=== PATIENT | female | born 1965 | race Caucasian/White ===

== ENCOUNTER 2019-03-02 09:43 | Inpatient (IN) | payer OTHER ==
[2019-03-02] MEDS: ONDANSETRON 4 MG INJ IV ×2 (10:28→21:44)
[2019-03-02] MEDS: HYDROmorphONE 1 MG/ML SYG IV (10:28)
[2019-03-02] MEDS: VANCOMYCIN 1 GM (PMX) 250 ML IVPB (10:29)
[2019-03-02] MEDS: SODIUM CHLORIDE 0.9% 1L BAG IV* (10:29)
[2019-03-02] MEDS: ACETAMINOPHEN 325 MG TAB PO ×2 (10:29→21:39)
[2019-03-02 10:31] LABS: ABNORMAL IP MESSAGE 1; HEMATOCRIT 23.9 % (37.0-47.0); HEMOGLOBIN 7.2 g/dl (12.0-16.0); MEAN CORPUSCULAR HEMOGLOBIN 25.9 pg (29.0-33.0); MEAN CORPUSCULAR HGB CONC 30.1 g/dl (32.0-37.0); MEAN PLATELET VOLUME 11.7 fl (7.4-10.4); PLATELET COUNT 177 10^3/UL (140-415); RED BLOOD COUNT 2.78 10^6/ul (4.20-5.40); RED CELL DISTRIBUTION WIDTH 21.6 % (11.5-14.5)
[2019-03-02 10:31] LABS: WHITE BLOOD COUNT 1.4 10^3/ul (4.8-10.8)
[2019-03-02 10:32] LABS: ADD MAN DIFF? YES; POSITIVE DIFF @See below
[2019-03-02 10:47] LABS: ALANINE AMINOTRANSFERASE 23 IU/L (13-69); ALBUMIN 3.7 g/dl (3.3-4.9); ALBUMIN/GLOBULIN RATIO 1.02; ALKALINE PHOSPHATASE 327 IU/L (42-121); AMYLASE 46 U/L (11-123); ANION GAP 11 (5-13); ASPARTATE AMINO TRANSFERASE 73 IU/L (15-46); BILIRUBIN,INDIRECT 1.2 mg/dl (0-1.1); BILIRUBIN,TOTAL 1.2 mg/dl (0.2-1.3); BLOOD UREA NITROGEN 13 mg/dl (7-20); CALCIUM 8.8 mg/dl (8.4-10.2); CARBON DIOXIDE 26 mmol/L (21-31); CHLORIDE 101 mmol/L (97-110); CREATININE 0.77 mg/dl (0.44-1.00); Estimated GFR > 60 mL/min (>60); GLUCOSE 128 mg/dl (70-220); INR 1.07; LIPASE 43 U/L (23-300); POTASSIUM 4.2 mmol/L (3.5-5.1); PT RATIO 1.1; SODIUM 138 mmol/L (135-144); TOTAL PROTEIN 7.3 g/dl (6.1-8.1)
[2019-03-02 10:48] LABS: PARTIAL THROMBOPLASTIN TIME 23.9 Sec (23.0-35.0)
[2019-03-02 10:58] LABS: TROPONIN-I 0.014 ng/ml (0.000-0.120)
[2019-03-02] MEDS: LEVOFLOXACIN 750MG/D5W (PMX) 150 ML IVPB (11:28)
[2019-03-02] MEDS: SOD CHLORIDE 0.9% 100 ML (11:52)
[2019-03-02] MEDS: IOHEXOL 300MG/ML 150 ML BTL (11:52)
[2019-03-02 12:07] LABS: ADD UMIC YES; UR ASCORBIC ACID NEGATIVE (NEGATIVE); UR BACTERIA FEW /HPF (NONE SEEN); UR BILIRUBIN (Dip) NEGATIVE (NEGATIVE); UR BLOOD (Dip) 1+ mg/dL (NEGATIVE); UR CLARITY CLEAR (CLEAR); UR COLOR YELLOW (YELLOW); UR GLUCOSE (Dip) NEGATIVE (NEGATIVE); UR KETONES (Dip) NEGATIVE (NEGATIVE); UR LEUKOCYTE ESTERASE (Dip) NEGATIVE Leu/ul (NEGATIVE); UR NITRITE (Dip) NEGATIVE (NEGATIVE); UR RBC 0 /HPF (0-5); UR SPECIFIC GRAVITY (Dip) 1.006 (1.003-1.030); UR TOTAL PROTEIN (Dip) NEGATIVE (NEGATIVE); UR UROBILINOGEN (Dip) NEGATIVE (NEGATIVE); UR WBC 0 /HPF (0-5)
[2019-03-02 12:54] LABS: ANISOCYTOSIS 3+ (0-0); BAND NEUTROPHILS % (M) 5 % (0-4); EOSINOPHILS % (M) 2 % (0-7); GIANT THROMBO% (M) 8 % (0-0); HYPOCHROMASIA 1+ (0-0); LYMPHOCYTES #M 0.1 10^3/ul (0.8-2.9); LYMPHOCYTES % (M) 8 % (15-51); MICROCYTOSIS 1+ (0-0); MONOCYTE #M 0.2 10^3/ul (0.3-0.9); MONOCYTES % (M) 20 % (0-11); OVALOCYTES 1+ (0-0); PLASMAC%(M) 1 % (0); PLATELET ESTIMATE NORMAL; POIKILOCYTOSIS 2+ (0-0); POLYCHROMASIA 3+ (0-0); SEG NEUT #M 0.9 10^3/ul (1.6-7.5); SEGMENTED NEUTROPHILS (M) % 64 % (39-77); TEAR DROP CELLS 1+ (0-0)
[2019-03-02] MEDS: HYDROCODONE/APAP (5/325) TAB PO ×2 (13:56→23:02)
[2019-03-02] MEDS: morphine 2 MG INJ IV ×2 (13:56→21:51)
[2019-03-02] MEDS: SOD CHLORIDE 0.9% 1,000 ML IV (13:56)
[2019-03-02] MEDS ORDERED: MAGNESIUM HYDROXIDE 30ML CUP PO (14:00)
[2019-03-02] MEDS ORDERED: NACL 0.9% 3 ML SYG IV (14:00)
[2019-03-02] MEDS ORDERED: DOCUSATE SODIUM 100 MG CAP PO (14:00)
[2019-03-02] MEDS ORDERED: VANCOMYCIN IV PER PHARMACY XX (14:00)
[2019-03-02 14:20] LABS: LACTIC ACID 1.6 mmol/L (0.5-2.0)
[2019-03-02 18:09] LABS: LACTIC ACID 1.4 mmol/L (0.5-2.0)
[2019-03-02] MEDS ORDERED: [UNRECOGNIZED DRUG - OTHER] PO (21:00)
[2019-03-02] MEDS: MEROPENEM 1 GM/50ML(PMX) 50 ML IVPB (21:38)
[2019-03-02] MEDS: VANCOMYCIN 1 GM 250 ML IVPB (21:39)
[2019-03-03] MEDS: ONDANSETRON 4 MG INJ IV ×3 (05:11→20:36)
[2019-03-03] MEDS: morphine 2 MG INJ IV ×3 (05:11→20:39)
[2019-03-03] MEDS: SOD CHLORIDE 0.9% 1,000 ML IV (05:12)
[2019-03-03] MEDS: HYDROCODONE/APAP (5/325) TAB PO ×3 (06:24→21:53)
[2019-03-03 06:25] LABS: WHITE BLOOD COUNT 1.5 10^3/ul (4.8-10.8)
[2019-03-03 06:25] LABS: ABNORMAL IP MESSAGE 1; HEMATOCRIT 19.9 % (37.0-47.0); MEAN CORPUSCULAR HEMOGLOBIN 26.5 pg (29.0-33.0); MEAN CORPUSCULAR HGB CONC 30.2 g/dl (32.0-37.0); MEAN CORPUSCULAR VOLUME 88.1 fl (82.0-101.0); PLATELET COUNT 154 10^3/UL (140-415); RED BLOOD COUNT 2.26 10^6/ul (4.20-5.40); RED CELL DISTRIBUTION WIDTH 21.5 % (11.5-14.5)
[2019-03-03 06:30] LABS: POSITIVE DIFF @See below
[2019-03-03 06:31] LABS: PATH REVIEW? YES
[2019-03-03 06:32] LABS: ADD MAN DIFF? YES
[2019-03-03 06:49] LABS: ANION GAP 6 (5-13); BLOOD UREA NITROGEN 12 mg/dl (7-20); CALCIUM 8.4 mg/dl (8.4-10.2); CARBON DIOXIDE 27 mmol/L (21-31); CHLORIDE 108 mmol/L (97-110); CREATININE 0.72 mg/dl (0.44-1.00); Estimated GFR > 60 mL/min (>60); GLUCOSE 114 mg/dl (70-220); POTASSIUM 3.5 mmol/L (3.5-5.1); SODIUM 141 mmol/L (135-144)
[2019-03-03 07:54] LABS: ANISOCYTOSIS 1+ (0-0); BAND NEUTROPHILS #M 0.2 10^3/ul (0.0-0.6); BAND NEUTROPHILS % (M) 15 % (0-4); BURR CELLS 1+ (0-0); EOSINOPHILS % (M) 1 % (0-7); GIANT THROMBO% (M) 5 % (0-0); HYPOCHROMASIA 1+ (0-0); LYMPHOCYTES #M 0.2 10^3/ul (0.8-2.9); LYMPHOCYTES % (M) 14 % (15-51); MICROCYTOSIS 1+ (0-0); MONOCYTE #M 0.1 10^3/ul (0.3-0.9); MONOCYTES % (M) 7 % (0-11); OVALOCYTES 1+ (0-0); PLASMAC%(M) 1 % (0); PLATELET ESTIMATE NORMAL; POIKILOCYTOSIS 2+ (0-0); POLYCHROMASIA 1+ (0-0); SEG NEUT #M 0.9 10^3/ul (1.6-7.5); SEGMENTED NEUTROPHILS (M) % 62 % (39-77); SMUDGE%M 6 % (0-0); TEAR DROP CELLS 1+ (0-0)
[2019-03-03 08:02] LABS: IMMEDIATE SPIN CROSSMATCH 1 1
[2019-03-03] MEDS ORDERED: LEVOFLOXACIN 750MG/D5W (PMX) 150 ML IVPB (11:00)
[2019-03-03] MEDS: MEROPENEM 1 GM/50ML(PMX) 50 ML IVPB ×2 (11:38→20:45)
[2019-03-03] MEDS: VANCOMYCIN 1 GM 250 ML IVPB (11:39)
[2019-03-03] MEDS: ACETAMINOPHEN 325 MG TAB PO ×2 (11:40→20:38)
[2019-03-03 12:08] LABS: ABNORMAL IP MESSAGE 1; HEMATOCRIT 23.7 % (37.0-47.0); HEMOGLOBIN 7.3 g/dl (12.0-16.0); MEAN CORPUSCULAR HEMOGLOBIN 26.9 pg (29.0-33.0); MEAN CORPUSCULAR HGB CONC 30.8 g/dl (32.0-37.0); MEAN CORPUSCULAR VOLUME 87.5 fl (82.0-101.0); MEAN PLATELET VOLUME 11.9 fl (7.4-10.4); PLATELET COUNT 165 10^3/UL (140-415); RED BLOOD COUNT 2.71 10^6/ul (4.20-5.40)
[2019-03-03 12:08] LABS: WHITE BLOOD COUNT 1.6 10^3/ul (4.8-10.8)
[2019-03-03 12:11] LABS: POSITIVE DIFF @See below
[2019-03-03 12:12] LABS: ADD MAN DIFF? YES
[2019-03-03 12:58] LABS: ANISOCYTOSIS 1+ (0-0); BAND NEUTROPHILS #M 0.2 10^3/ul (0.0-0.6); BAND NEUTROPHILS % (M) 13 % (0-4); GIANT THROMBO% (M) 3 % (0-0); HYPOCHROMASIA 1+ (0-0); LYMPHOCYTES #M 0.2 10^3/ul (0.8-2.9); LYMPHOCYTES % (M) 13 % (15-51); METAMYELOCYTES %M 1 % (0-0); MICROCYTOSIS 1+ (0-0); MONOCYTES % (M) 3 % (0-11); OVALOCYTES 1+ (0-0); PLATELET ESTIMATE NORMAL; POIKILOCYTOSIS 2+ (0-0); POLYCHROMASIA 1+ (0-0); SCHISTOCYTES 1+ (0-0); SEG NEUT #M 1.1 10^3/ul (1.6-7.5); SEGMENTED NEUTROPHILS (M) % 70 % (39-77); TEAR DROP CELLS 1+ (0-0)
[2019-03-04] MEDS: ONDANSETRON 4 MG INJ IV ×3 (07:57→23:18)
[2019-03-04] MEDS: morphine 2 MG INJ IV ×3 (07:59→23:27)
[2019-03-04] MEDS: MEROPENEM 1 GM/50ML(PMX) 50 ML IVPB ×2 (08:02→21:42)
[2019-03-04] MEDS: HYDROCODONE/APAP (5/325) TAB PO ×2 (09:16→16:30)
[2019-03-04] MEDS: FILGRASTIM-AAFI 300 MCG/0.5 ML SYRINGE SC (16:31)
[2019-03-05] MEDS: HYDROCODONE/APAP (5/325) TAB PO ×3 (00:12→14:22)
[2019-03-05] MEDS: morphine 2 MG INJ IV (06:33)
[2019-03-05] MEDS: ONDANSETRON 4 MG INJ IV (06:33)
[2019-03-05] MEDS: [UNRECOGNIZED DRUG - REMARK] XX ×2 (06:39→14:30)
[2019-03-05] MEDS: MEROPENEM 1 GM/50ML(PMX) 50 ML IVPB (08:10)
[2019-03-05] MEDS: metroNIDAZOLE 500 MG TAB PO (14:19)
[2019-03-05] MEDS: FILGRASTIM-AAFI 300 MCG/0.5 ML SYRINGE SC (15:16)
== END 2019-03-05 16:35 | disposition home or self-care (01) | DRG 872 ==
LOC: E/R 09:43 → TEL 13:35
DX: A41.89 Other specified sepsis (principal); C18.9 Malignant neoplasm of colon, unspecified; C78.7 Secondary malignant neoplasm of liver and intrahepatic bile duct; C79.51 Secondary malignant neoplasm of bone; R18.8 Other ascites; D70.9 Neutropenia, unspecified; D63.0 Anemia in neoplastic disease; D64.81 Anemia due to antineoplastic chemotherapy; T45.1X5A Adverse effect of antineoplastic and immunosuppressive drugs, initial encounter
CPT/HCPCS: 36430; 71045; 74177; 80048; 80053; 81001; 82150; 82378; 83605; 83690; 83735; 84484; 85025; 85610; 85730; 86850; 86900; 86901; 86920; 87040-91; 87086; 87400; 93005; 97161; 97166

== ENCOUNTER 2019-03-11 18:19 | Emergency (ER) | payer OTHER | END 2019-03-11 19:31 | disposition home or self-care (01) | LOC: E/R 18:19 | DX: R10.9 Unspecified abdominal pain (principal); R18.0 Malignant ascites; C18.9 Malignant neoplasm of colon, unspecified; C78.7 Secondary malignant neoplasm of liver and intrahepatic bile duct | CPT/HCPCS: 99282; Z7502 ==

== ENCOUNTER 2019-03-12 09:39 | Emergency (ER) | payer OTHER ==
[2019-03-12] MEDS: LIDOCAINE 1% (MPF) 5 ML VIAL (13:35)
[2019-03-12 14:33] LABS: FLD MN% 71.5 %; FLD PMN% 28.5 %; FLD RBC 0 /uL; FLD WBC 102 /cmm
[2019-03-12 15:29] LABS: FLD TYPE PARACENTHESIS
[2019-03-12 15:30] LABS: FLD CLARITY CLEAR; FLD COLOR YELLOW
== END 2019-03-12 14:07 | disposition home or self-care (01) ==
LOC: E/R 09:39
DX: R18.8 Other ascites (principal); Z85.038 Personal history of other malignant neoplasm of large intestine
CPT/HCPCS: 87070; 87075; 87102; 87116; 89051; 99285-25

== ENCOUNTER 2019-03-28 08:13 | Inpatient (IN) | payer OTHER ==
[2019-03-28 09:48] LABS: ADD MAN DIFF? NO
[2019-03-28 09:53] LABS: ABNORMAL IP MESSAGE 1; BASOPHILS % 0.3 % (0.0-2.0); EOSINOPHILS % 0.3 % (0.0-7.0); HEMATOCRIT 22.3 % (37.0-47.0); LYMPHOCYTES # 0.3 10^3/ul (0.8-2.9); LYMPHOCYTES % 4.5 % (15.0-51.0); MEAN CORPUSCULAR HEMOGLOBIN 27.4 pg (29.0-33.0); MEAN CORPUSCULAR HGB CONC 29.1 g/dl (32.0-37.0); MEAN CORPUSCULAR VOLUME 94.1 fl (82.0-101.0); MEAN PLATELET VOLUME 11.2 fl (7.4-10.4); MONOCYTE # 0.7 10^3/ul (0.3-0.9); MONOCYTES % 10.7 % (0.0-11.0); NEUTROPHIL # 5.7 10^3/ul (1.6-7.5); NEUTROPHILS % 83.3 % (39.0-77.0); PLATELET COUNT 494 10^3/UL (140-415); RED BLOOD COUNT 2.37 10^6/ul (4.20-5.40); RED CELL DISTRIBUTION WIDTH 23.5 % (11.5-14.5)
[2019-03-28 09:53] LABS: WHITE BLOOD COUNT 6.9 10^3/ul (4.8-10.8)
[2019-03-28 10:07] LABS: INR 1.16; PROTIME 14.9 Sec (11.9-14.9); PT RATIO 1.2
[2019-03-28 10:12] LABS: POSITIVE DIFF @See below
[2019-03-28 10:13] LABS: PARTIAL THROMBOPLASTIN TIME 37.8 Sec (23.0-35.0)
[2019-03-28 10:16] LABS: PATH REVIEW? YES
[2019-03-28 10:18] LABS: ALANINE AMINOTRANSFERASE 28 IU/L (13-69); ALBUMIN 3.1 g/dl (3.3-4.9); ALBUMIN/GLOBULIN RATIO 0.81; ALKALINE PHOSPHATASE 566 IU/L (42-121); ANION GAP 5 (5-13); ASPARTATE AMINO TRANSFERASE 85 IU/L (15-46); BILIRUBIN,INDIRECT 0.7 mg/dl (0-1.1); BILIRUBIN,TOTAL 0.7 mg/dl (0.2-1.3); BLOOD UREA NITROGEN 14 mg/dl (7-20); CALCIUM 8.6 mg/dl (8.4-10.2); CARBON DIOXIDE 31 mmol/L (21-31); CHLORIDE 99 mmol/L (97-110); CREATININE 0.67 mg/dl (0.44-1.00); Estimated GFR > 60 mL/min (>60); GLUCOSE 120 mg/dl (70-220); HEMOGLOBIN 6.5 g/dl (12.0-16.0); POTASSIUM 4.2 mmol/L (3.5-5.1); SODIUM 135 mmol/L (135-144); TOTAL PROTEIN 6.9 g/dl (6.1-8.1)
[2019-03-28] MEDS: SOD CHLORIDE 0.9% 0 ML IV (10:24)
[2019-03-28] MEDS ORDERED: ACETAMINOPHEN 325 MG TAB PO (11:30)
[2019-03-28] MEDS ORDERED: ONDANSETRON 4 MG INJ IV ×2 (11:30→15:00)
[2019-03-28] MEDS: LIDOCAINE 1% (MPF) 5 ML VIAL (11:52)
[2019-03-28 12:00] LABS: ANISOCYTOSIS 1+ (0-0); BAND NEUTROPHILS #M 0.2 10^3/ul (0.0-0.6); BAND NEUTROPHILS % (M) 3 % (0-4); BASOPHILS % (M) 1 % (0-2); GIANT THROMBO% (M) 4 % (0-0); HYPOCHROMASIA 1+ (0-0); LYMPHOCYTES % (M) 1 % (15-51); MONOCYTE #M 0.4 10^3/ul (0.3-0.9); MONOCYTES % (M) 7 % (0-11); PLATELET ESTIMATE NORMAL; POIKILOCYTOSIS 2+ (0-0); POLYCHROMASIA 3+ (0-0); SEG NEUT #M 6.1 10^3/ul (1.6-7.5); SEGMENTED NEUTROPHILS (M) % 88 % (39-77); SMUDGE%M 1 % (0-0); TARGET CELLS 1+ (0-0)
[2019-03-28 13:06] LABS: FLD MN% 86.5 %; FLD PMN% 13.5 %; FLD RBC 0 /uL
[2019-03-28 13:42] LABS: FLD TYPE ASCITES
[2019-03-28 13:42] LABS: FLD CLARITY HAZY; FLD COLOR YELLOW; PATH REVIEW? YES
[2019-03-28 13:48] LABS: FLD WBC 89 /cmm
[2019-03-28] MEDS ORDERED: ZOLPIDEM 5 MG TAB PO (15:00)
[2019-03-28] MEDS: ACETAMINOPHEN 325 MG TAB PO (15:10)
[2019-03-28] MEDS ORDERED: VANCOMYCIN 1 GM (PMX) 250 ML IVPB (15:30)
[2019-03-28 16:37] LABS: ADD UMIC YES; UR ASCORBIC ACID NEGATIVE (NEGATIVE); UR BILIRUBIN (Dip) NEGATIVE (NEGATIVE); UR BLOOD (Dip) NEGATIVE (NEGATIVE); UR CLARITY CLOUDY (CLEAR); UR COLOR AMBER (YELLOW); UR GLUCOSE (Dip) NEGATIVE (NEGATIVE); UR KETONES (Dip) NEGATIVE (NEGATIVE); UR LEUKOCYTE ESTERASE (Dip) NEGATIVE Leu/ul (NEGATIVE); UR MUCUS MODERATE /HPF (NONE SEEN); UR NITRITE (Dip) NEGATIVE (NEGATIVE); UR RBC 1 /HPF (0-5); UR SPECIFIC GRAVITY (Dip) 1.023 (1.003-1.030); UR SQUAMOUS EPITHELIAL CELL FEW /HPF (FEW); UR TOTAL PROTEIN (Dip) NEGATIVE (NEGATIVE); UR UROBILINOGEN (Dip) 2+ mg/dL (NEGATIVE); UR WBC 6 /HPF (0-5)
[2019-03-28] MEDS: AZTREONAM 1 GM/NS (PMX) 50 ML IVPB (16:53)
[2019-03-28] MEDS: HYDROCODONE/APAP (10/325) TAB PO (18:06)
[2019-03-28 20:09] LABS: IMMEDIATE SPIN CROSSMATCH 1 3
[2019-03-28] MEDS ORDERED: morphine 2 MG INJ IV (22:00)
[2019-03-28] MEDS: morphine (ER) 30 MG TAB PO (22:08)
[2019-03-28] MEDS: DOCUSATE SODIUM 100 MG CAP PO (22:29)
[2019-03-28] MEDS: BISACODYL (EC) 5 MG TAB PO (22:29)
[2019-03-29] MEDS: ACETAMINOPHEN 325 MG TAB PO (00:44)
[2019-03-29 04:59] LABS: ADD MAN DIFF? NO
[2019-03-29 05:04] LABS: WHITE BLOOD COUNT 6.9 10^3/ul (4.8-10.8)
[2019-03-29 05:04] LABS: ABNORMAL IP MESSAGE 1; BASOPHILS % 0.3 % (0.0-2.0); EOSINOPHILS % 0.4 % (0.0-7.0); HEMATOCRIT 26.4 % (37.0-47.0); LYMPHOCYTES # 0.4 10^3/ul (0.8-2.9); LYMPHOCYTES % 6.4 % (15.0-51.0); MEAN CORPUSCULAR HEMOGLOBIN 27.7 pg (29.0-33.0); MEAN CORPUSCULAR HGB CONC 30.3 g/dl (32.0-37.0); MEAN CORPUSCULAR VOLUME 91.3 fl (82.0-101.0); MEAN PLATELET VOLUME 11.2 fl (7.4-10.4); MONOCYTE # 0.8 10^3/ul (0.3-0.9); MONOCYTES % 11.8 % (0.0-11.0); NEUTROPHIL # 5.6 10^3/ul (1.6-7.5); NEUTROPHILS % 80.2 % (39.0-77.0); PLATELET COUNT 423 10^3/UL (140-415); RED BLOOD COUNT 2.89 10^6/ul (4.20-5.40); RED CELL DISTRIBUTION WIDTH 21.9 % (11.5-14.5)
[2019-03-29 05:11] LABS: POSITIVE DIFF @See below
[2019-03-29 05:33] LABS: ALANINE AMINOTRANSFERASE 32 IU/L (13-69); ALBUMIN 2.8 g/dl (3.3-4.9); ALBUMIN/GLOBULIN RATIO 0.75; ALKALINE PHOSPHATASE 596 IU/L (42-121); ANION GAP 3 (5-13); ASPARTATE AMINO TRANSFERASE 86 IU/L (15-46); BILIRUBIN,INDIRECT 0.7 mg/dl (0-1.1); BILIRUBIN,TOTAL 0.7 mg/dl (0.2-1.3); BLOOD UREA NITROGEN 14 mg/dl (7-20); CALCIUM 8.4 mg/dl (8.4-10.2); CARBON DIOXIDE 31 mmol/L (21-31); CHLORIDE 98 mmol/L (97-110); CREATININE 0.69 mg/dl (0.44-1.00); Estimated GFR > 60 mL/min (>60); GLUCOSE 100 mg/dl (70-220); MAGNESIUM 2.2 mg/dl (1.7-2.5); PHOSPHORUS 4.7 mg/dl (2.5-4.9); POTASSIUM 4.1 mmol/L (3.5-5.1); SODIUM 132 mmol/L (135-144); TOTAL PROTEIN 6.5 g/dl (6.1-8.1)
[2019-03-29] MEDS: HYDROCODONE/APAP (10/325) TAB PO ×2 (05:43→16:24)
[2019-03-29] MEDS: POLYETHYLENE GLYCOL 17 GM PACKET PO (05:50)
[2019-03-29 07:04] LABS: HEMOGLOBIN A1C 5.9 % (0-5.9)
[2019-03-29] MEDS ORDERED: VANCOMYCIN IV PER PHARMACY XX (07:30)
[2019-03-29] MEDS: DOCUSATE SODIUM 250 MG CAP PO (09:18)
[2019-03-29] MEDS: CIPROFLOXACIN 400MG/D5W 200 ML IVPB ×2 (09:18→20:25)
[2019-03-29] MEDS: morphine (ER) 30 MG TAB PO (09:20)
[2019-03-29] MEDS: ONDANSETRON 4 MG INJ IV (09:20)
[2019-03-29] MEDS: VANCOMYCIN 1.25 GM/NS 250 ML 250 ML IVPB (11:21)
[2019-03-29] MEDS: MAGNESIUM CITRATE 300 ML BTL PO (15:34)
[2019-03-29 17:20] LABS: LACTIC ACID 1.1 mmol/L (0.5-2.0)
[2019-03-29] MEDS: VANCOMYCIN 750 MG (PMX) 250 ML IVPB (19:56)
[2019-03-29] MEDS: morphine (ER) 15 MG TAB PO (20:22)
[2019-03-30] MEDS: HYDROCODONE/APAP (10/325) TAB PO ×3 (02:52→19:58)
[2019-03-30 05:33] LABS: ADD MAN DIFF? NO
[2019-03-30 05:40] LABS: ABNORMAL IP MESSAGE 1; BASOPHILS % 0.1 % (0.0-2.0); EOSINOPHILS % 0.4 % (0.0-7.0); HEMATOCRIT 30.3 % (37.0-47.0); HEMOGLOBIN 9.4 g/dl (12.0-16.0); LYMPHOCYTES # 0.3 10^3/ul (0.8-2.9); LYMPHOCYTES % 4.6 % (15.0-51.0); MEAN CORPUSCULAR HEMOGLOBIN 27.9 pg (29.0-33.0); MEAN CORPUSCULAR VOLUME 89.9 fl (82.0-101.0); MEAN PLATELET VOLUME 11.4 fl (7.4-10.4); MONOCYTE # 0.9 10^3/ul (0.3-0.9); MONOCYTES % 12.3 % (0.0-11.0); NEUTROPHIL # 5.8 10^3/ul (1.6-7.5); NEUTROPHILS % 81.3 % (39.0-77.0); PLATELET COUNT 425 10^3/UL (140-415); RED BLOOD COUNT 3.37 10^6/ul (4.20-5.40); RED CELL DISTRIBUTION WIDTH 20.7 % (11.5-14.5)
[2019-03-30 05:40] LABS: WHITE BLOOD COUNT 7.2 10^3/ul (4.8-10.8)
[2019-03-30 05:53] LABS: POSITIVE DIFF @See below
[2019-03-30] MEDS: VANCOMYCIN 750 MG (PMX) 250 ML IVPB ×2 (06:02→19:56)
[2019-03-30 06:16] LABS: ALANINE AMINOTRANSFERASE 38 IU/L (13-69); ALBUMIN 2.8 g/dl (3.3-4.9); ALBUMIN/GLOBULIN RATIO 0.71; ALKALINE PHOSPHATASE 711 IU/L (42-121); ANION GAP 5 (5-13); ASPARTATE AMINO TRANSFERASE 102 IU/L (15-46); BILIRUBIN,INDIRECT 0.7 mg/dl (0-1.1); BILIRUBIN,TOTAL 0.7 mg/dl (0.2-1.3); BLOOD UREA NITROGEN 12 mg/dl (7-20); CALCIUM 8.4 mg/dl (8.4-10.2); CARBON DIOXIDE 30 mmol/L (21-31); CHLORIDE 98 mmol/L (97-110); CREATININE 0.61 mg/dl (0.44-1.00); Estimated GFR > 60 mL/min (>60); GLUCOSE 103 mg/dl (70-220); POTASSIUM 4.2 mmol/L (3.5-5.1); SODIUM 133 mmol/L (135-144); TOTAL PROTEIN 6.7 g/dl (6.1-8.1)
[2019-03-30 07:45] LABS: IRON 27 ug/dl (35-150)
[2019-03-30 07:56] LABS: % IRON SATURATION 18 % SAT (22-52); TOTAL IRON BINDING CAPACITY 147 ug/dl (241-421)
[2019-03-30] MEDS: CIPROFLOXACIN 400MG/D5W 200 ML IVPB ×2 (08:45→22:23)
[2019-03-30] MEDS: DOCUSATE SODIUM 250 MG CAP PO (08:45)
[2019-03-30] MEDS: morphine (ER) 15 MG TAB PO ×2 (08:45→20:45)
[2019-03-30] MEDS: POLYETHYLENE GLYCOL 17 GM PACKET PO (08:46)
[2019-03-30] MEDS: HYDROCODONE/APAP (5/325) TAB PO (17:16)
[2019-03-30 19:36] LABS: VANCOMYCIN,TROUGH 10.6 ug/ml (10.0-20.0)
[2019-03-30] MEDS: NACL 0.9% 3 ML SYG IV (19:56)
[2019-03-31] MEDS: HYDROCODONE/APAP (5/325) TAB PO ×2 (01:19→08:32)
[2019-03-31 04:56] LABS: ADD MAN DIFF? NO
[2019-03-31 05:02] LABS: ABNORMAL IP MESSAGE 1; BASOPHILS % 0.3 % (0.0-2.0); EOSINOPHILS % 0.3 % (0.0-7.0); HEMATOCRIT 28.5 % (37.0-47.0); HEMOGLOBIN 8.6 g/dl (12.0-16.0); LYMPHOCYTES # 0.3 10^3/ul (0.8-2.9); MEAN CORPUSCULAR HGB CONC 30.2 g/dl (32.0-37.0); MEAN CORPUSCULAR VOLUME 92.8 fl (82.0-101.0); MEAN PLATELET VOLUME 10.8 fl (7.4-10.4); MONOCYTE # 0.9 10^3/ul (0.3-0.9); MONOCYTES % 11.6 % (0.0-11.0); NEUTROPHIL # 6.2 10^3/ul (1.6-7.5); NEUTROPHILS % 82.6 % (39.0-77.0); PLATELET COUNT 338 10^3/UL (140-415); RED BLOOD COUNT 3.07 10^6/ul (4.20-5.40); RED CELL DISTRIBUTION WIDTH 20.8 % (11.5-14.5)
[2019-03-31 05:02] LABS: WHITE BLOOD COUNT 7.5 10^3/ul (4.8-10.8)
[2019-03-31 05:17] LABS: LYMPHOCYTES % 4.1 % (15.0-51.0); POSITIVE DIFF @See below
[2019-03-31] MEDS: HYDROCODONE/APAP (10/325) TAB PO (06:31)
[2019-03-31] MEDS: BISACODYL (EC) 5 MG TAB PO (06:35)
[2019-03-31] MEDS: POLYETHYLENE GLYCOL 17 GM PACKET PO (06:35)
[2019-03-31] MEDS: DOCUSATE SODIUM 250 MG CAP PO (08:32)
[2019-03-31] MEDS: morphine (ER) 15 MG TAB PO (08:32)
[2019-03-31] MEDS: SOD FERRIC GLUC COMPLX 125 MG in SOD CHLORIDE 0.9% 100 ML IVPB (10:48)
== END 2019-03-31 13:00 | disposition home or self-care (01) | DRG 872 ==
LOC: E/R 08:13 → MS1 11:13
PROC: 0W9G3ZX Drainage of Peritoneal Cavity, Percutaneous Approach, Diagnostic (ICD-10-PCS; principal; 2019-03-28)
PROC: 30233N1 Transfusion of Nonautologous Red Blood Cells into Peripheral Vein, Percutaneous Approach (ICD-10-PCS; 2019-03-28)
PROC: 30233N1 Transfusion of Nonautologous Red Blood Cells into Peripheral Vein, Percutaneous Approach (ICD-10-PCS; 2019-03-29)
DX: A41.9 Sepsis, unspecified organism (principal); C78.7 Secondary malignant neoplasm of liver and intrahepatic bile duct; C79.51 Secondary malignant neoplasm of bone; R18.0 Malignant ascites; D63.0 Anemia in neoplastic disease; G89.3 Neoplasm related pain (acute) (chronic); K59.00 Constipation, unspecified; D50.9 Iron deficiency anemia, unspecified; Z87.891 Personal history of nicotine dependence; Z85.038 Personal history of other malignant neoplasm of large intestine
CPT/HCPCS: 36430; 71045; 76705; 80053; 80202; 81001; 83036; 83540; 83605; 83735; 84100; 85025; 85610; 85730; 86850; 86900; 86901; 86920; 87040-91; 87070; 87075; 87081; 87086; 87102; 87116; 89051; 99285-25

== ENCOUNTER 2019-04-08 07:59 | Emergency (ER) | payer OTHER ==
[2019-04-08 08:53] LABS: ADD MAN DIFF? NO
[2019-04-08 08:55] LABS: ABNORMAL IP MESSAGE 1; BASOPHILS % 0.3 % (0.0-2.0); EOSINOPHILS % 0.1 % (0.0-7.0); HEMATOCRIT 30.2 % (37.0-47.0); HEMOGLOBIN 9.3 g/dl (12.0-16.0); LYMPHOCYTES # 0.5 10^3/ul (0.8-2.9); LYMPHOCYTES % 3.1 % (15.0-51.0); MEAN CORPUSCULAR HEMOGLOBIN 28.1 pg (29.0-33.0); MEAN CORPUSCULAR HGB CONC 30.8 g/dl (32.0-37.0); MEAN CORPUSCULAR VOLUME 91.2 fl (82.0-101.0); MONOCYTE # 0.9 10^3/ul (0.3-0.9); MONOCYTES % 5.7 % (0.0-11.0); NEUTROPHIL # 13.7 10^3/ul (1.6-7.5); NEUTROPHILS % 87.6 % (39.0-77.0); PLATELET COUNT 295 10^3/UL (140-415); POSITIVE DIFF @See below; RED BLOOD COUNT 3.31 10^6/ul (4.20-5.40); RED CELL DISTRIBUTION WIDTH 19.1 % (11.5-14.5)
[2019-04-08 08:55] LABS: WHITE BLOOD COUNT 15.6 10^3/ul (4.8-10.8)
[2019-04-08 09:14] LABS: INR 1.08; PROTIME 14.1 Sec (11.9-14.9); PT RATIO 1.1
[2019-04-08 09:25] LABS: ANION GAP 7 (5-13); BLOOD UREA NITROGEN 13 mg/dl (7-20); CALCIUM 8.8 mg/dl (8.4-10.2); CARBON DIOXIDE 28 mmol/L (21-31); CHLORIDE 98 mmol/L (97-110); CREATININE 0.72 mg/dl (0.44-1.00); Estimated GFR > 60 mL/min (>60); GLUCOSE 126 mg/dl (70-220); POTASSIUM 4.5 mmol/L (3.5-5.1); SODIUM 133 mmol/L (135-144)
[2019-04-08] MEDS: LIDOCAINE 1% (MPF) 5 ML VIAL (10:18)
== END 2019-04-08 10:30 | disposition home or self-care (01) ==
LOC: E/R 07:59
DX: K74.60 Unspecified cirrhosis of liver (principal); R18.8 Other ascites; D64.9 Anemia, unspecified; D72.829 Elevated white blood cell count, unspecified; Z48.817 Encounter for surgical aftercare following surgery on the skin and subcutaneous tissue; Z85.038 Personal history of other malignant neoplasm of large intestine; Z85.05 Personal history of malignant neoplasm of liver
CPT/HCPCS: 80048; 85025; 85610; 86850; 86900; 86901; 99285-25

== ENCOUNTER 2019-04-15 07:52 | Inpatient (IN) | payer OTHER ==
[2019-04-15 09:23] LABS: ADD MAN DIFF? NO
[2019-04-15 09:25] LABS: ABNORMAL IP MESSAGE 1; BASOPHILS % 0.2 % (0.0-2.0); EOSINOPHILS % 0.2 % (0.0-7.0); HEMATOCRIT 30.6 % (37.0-47.0); HEMOGLOBIN 9.5 g/dl (12.0-16.0); LYMPHOCYTES # 0.4 10^3/ul (0.8-2.9); LYMPHOCYTES % 1.8 % (15.0-51.0); MEAN CORPUSCULAR HEMOGLOBIN 27.7 pg (29.0-33.0); MEAN CORPUSCULAR VOLUME 89.2 fl (82.0-101.0); MEAN PLATELET VOLUME 11.9 fl (7.4-10.4); MONOCYTE # 0.8 10^3/ul (0.3-0.9); MONOCYTES % 3.7 % (0.0-11.0); NEUTROPHIL # 19.1 10^3/ul (1.6-7.5); NEUTROPHILS % 90.8 % (39.0-77.0); NUCLEATED RED BLOOD CELLS # 0.1 10^3/ul (0.0-0.0); NUCLEATED RED BLOOD CELLS% 0.3 /100WBC (0.0-0.0); PLATELET COUNT 326 10^3/UL (140-415); RED BLOOD COUNT 3.43 10^6/ul (4.20-5.40); RED CELL DISTRIBUTION WIDTH 19.9 % (11.5-14.5)
[2019-04-15] MEDS: SOD CHLORIDE 0.9% 1,000 ML IV (09:28)
[2019-04-15] MEDS: ONDANSETRON 4 MG INJ IV ×2 (09:29→21:10)
[2019-04-15 09:30] LABS: POSITIVE DIFF @See below
[2019-04-15 09:41] LABS: ALANINE AMINOTRANSFERASE 79 IU/L (13-69); ALBUMIN 2.8 g/dl (3.3-4.9); ALBUMIN/GLOBULIN RATIO 0.68; ANION GAP 11 (5-13); ASPARTATE AMINO TRANSFERASE 227 IU/L (15-46); BILIRUBIN,INDIRECT 0.9 mg/dl (0-1.1); BILIRUBIN,TOTAL 4.7 mg/dl (0.2-1.3); BLOOD UREA NITROGEN 24 mg/dl (7-20); CALCIUM 8.6 mg/dl (8.4-10.2); CARBON DIOXIDE 24 mmol/L (21-31); CHLORIDE 93 mmol/L (97-110); CREATININE 1.17 mg/dl (0.44-1.00); Estimated GFR 48 mL/min (>60); GLUCOSE 136 mg/dl (70-220); POTASSIUM 4.9 mmol/L (3.5-5.1); SODIUM 128 mmol/L (135-144); TOTAL PROTEIN 6.9 g/dl (6.1-8.1)
[2019-04-15 09:44] LABS: INR 1.14; PROTIME 14.7 Sec (11.9-14.9); PT RATIO 1.1
[2019-04-15 09:45] LABS: PARTIAL THROMBOPLASTIN TIME 31.6 Sec (23.0-35.0)
[2019-04-15 09:49] LABS: ALKALINE PHOSPHATASE 1341 IU/L (42-121)
[2019-04-15] MEDS: LIDOCAINE 1% (MPF) 5 ML VIAL (10:54)
[2019-04-15 12:30] LABS: FLD MN% 74.5 %; FLD PMN% 25.5 %; FLD RBC 2000 /uL; FLD WBC 94 /cmm
[2019-04-15 12:55] LABS: FLD TYPE PARACENTHESIS
[2019-04-15 12:55] LABS: FLD CLARITY HAZY; FLD COLOR YELLOW; PATH REVIEW? YES
[2019-04-15] MEDS ORDERED: ONDANSETRON 4 MG INJ IV (15:00)
[2019-04-15] MEDS ORDERED: ACETAMINOPHEN 325 MG TAB PO (15:00)
[2019-04-15] MEDS ORDERED: morphine 2 MG INJ IV (16:30)
[2019-04-15] MEDS ORDERED: NACL 0.9% 3 ML SYG IV (16:30)
[2019-04-15] MEDS ORDERED: DOCUSATE SODIUM 100 MG CAP PO (16:30)
[2019-04-15] MEDS: morphine (ER) 30 MG TAB PO (20:22)
[2019-04-15] MEDS: ALBUMIN HUMAN 25% 50 ML IV (20:22)
[2019-04-15] MEDS: HYDROCODONE/APAP (10/325) TAB PO (20:48)
[2019-04-16] MEDS: ALBUMIN HUMAN 25% 50 ML IV ×3 (01:06→16:12)
[2019-04-16] MEDS ORDERED: PENDING SANTYL ORDER FOR WOUND CARE XX (03:30)
[2019-04-16] MEDS: ONDANSETRON 4 MG INJ IV ×2 (03:49→19:20)
[2019-04-16 04:04] LABS: SODIUM,URINE RANDOM < 13 mmol/L (30-90)
[2019-04-16 04:06] LABS: PROTEIN/CREAT RATIO 0.17 RATIO
[2019-04-16 04:07] LABS: ADD UMIC YES; UR AMORPHOUS CRYSTAL FEW /HPF (NONE SEEN); UR ASCORBIC ACID 20 mg/dL (NEGATIVE); UR BACTERIA FEW /HPF (NONE SEEN); UR BILIRUBIN (Dip) 2+ mg/dL (NEGATIVE); UR BLOOD (Dip) NEGATIVE (NEGATIVE); UR CLARITY CLOUDY (CLEAR); UR COLOR AMBER (YELLOW); UR GLUCOSE (Dip) NEGATIVE (NEGATIVE); UR KETONES (Dip) NEGATIVE (NEGATIVE); UR LEUKOCYTE ESTERASE (Dip) NEGATIVE Leu/ul (NEGATIVE); UR MUCUS FEW /HPF (NONE SEEN); UR NITRITE (Dip) NEGATIVE (NEGATIVE); UR NONSQUAMOUS EPITHELIAL CELL 1 /HPF (NONE SEEN); UR RBC 1 /HPF (0-5); UR SQUAMOUS EPITHELIAL CELL FEW /HPF (FEW); UR TOTAL PROTEIN (Dip) NEGATIVE (NEGATIVE); UR UROBILINOGEN (Dip) 2+ mg/dL (NEGATIVE); UR WBC 4 /HPF (0-5)
[2019-04-16] MEDS: HYDROCODONE/APAP (10/325) TAB PO ×2 (05:17→16:12)
[2019-04-16] MEDS: PANTOPRAZOLE 40 MG INJ IV (05:17)
[2019-04-16 06:44] LABS: ADD MAN DIFF? NO
[2019-04-16 06:52] LABS: ABNORMAL IP MESSAGE 1; BASOPHILS % 0.2 % (0.0-2.0); EOSINOPHILS % 0.1 % (0.0-7.0); HEMATOCRIT 26.3 % (37.0-47.0); HEMOGLOBIN 8.2 g/dl (12.0-16.0); LYMPHOCYTES # 0.4 10^3/ul (0.8-2.9); LYMPHOCYTES % 2.8 % (15.0-51.0); MEAN CORPUSCULAR HEMOGLOBIN 28.1 pg (29.0-33.0); MEAN CORPUSCULAR HGB CONC 31.2 g/dl (32.0-37.0); MEAN CORPUSCULAR VOLUME 90.1 fl (82.0-101.0); MEAN PLATELET VOLUME 12.4 fl (7.4-10.4); MONOCYTE # 0.9 10^3/ul (0.3-0.9); MONOCYTES % 5.8 % (0.0-11.0); NEUTROPHIL # 13.2 10^3/ul (1.6-7.5); NEUTROPHILS % 88.5 % (39.0-77.0); NUCLEATED RED BLOOD CELLS # 0.1 10^3/ul (0.0-0.0); NUCLEATED RED BLOOD CELLS% 0.3 /100WBC (0.0-0.0); PLATELET COUNT 313 10^3/UL (140-415); RED BLOOD COUNT 2.92 10^6/ul (4.20-5.40); RED CELL DISTRIBUTION WIDTH 20.2 % (11.5-14.5)
[2019-04-16 06:52] LABS: WHITE BLOOD COUNT 14.9 10^3/ul (4.8-10.8)
[2019-04-16 07:12] LABS: POSITIVE DIFF @See below
[2019-04-16 07:19] LABS: ALANINE AMINOTRANSFERASE 94 IU/L (13-69); ALBUMIN 2.5 g/dl (3.3-4.9); ALBUMIN/GLOBULIN RATIO 0.78; ALKALINE PHOSPHATASE 1454 IU/L (42-121); ANION GAP 12 (5-13); ASPARTATE AMINO TRANSFERASE 330 IU/L (15-46); BILIRUBIN,TOTAL 5.2 mg/dl (0.2-1.3); BLOOD UREA NITROGEN 28 mg/dl (7-20); CALCIUM 8.3 mg/dl (8.4-10.2); CARBON DIOXIDE 23 mmol/L (21-31); CHLORIDE 94 mmol/L (97-110); CHOL/HDL RATIO 12.3 RATIO; CHOLESTEROL 272 mg/dl (100-200); CREATININE 1.28 mg/dl (0.44-1.00); Estimated GFR 43 mL/min (>60); GLUCOSE 108 mg/dl (70-220); HDL CHOLESTEROL 22 mg/dl (37-92); LDL CHOLESTEROL,CALCULATED 174 mg/dl; MAGNESIUM 2.4 mg/dl (1.7-2.5); PHOSPHORUS 6.3 mg/dl (2.5-4.9); POTASSIUM 5.6 mmol/L (3.5-5.1); SODIUM 129 mmol/L (135-144); TOTAL PROTEIN 5.7 g/dl (6.1-8.1); TRIGLYCERIDES 381 mg/dl (0-149)
[2019-04-16 07:22] LABS: URIC ACID 10.2 mg/dl (3.1-7.9)
[2019-04-16 07:22] LABS: CREATINE KINASE 305 IU/L (23-200)
[2019-04-16 07:26] LABS: HEMOGLOBIN A1C 5.4 % (0-5.9)
[2019-04-16 08:01] LABS: FREE THYROXINE INDEX (Calc) 2.82 ug/ml (0.65-3.89); T4 (THYROXINE) 5.7 ug/dl (5.5-11.0)
[2019-04-16 08:06] LABS: T3 UPTAKE 49.4 % (23.5-40.5)
[2019-04-16] MEDS: HYDROmorphONE 2 MG TAB PO ×2 (08:49→13:03)
[2019-04-16] MEDS: morphine (ER) 30 MG TAB PO ×2 (10:02→20:44)
[2019-04-16] MEDS: NA POLYST SULFON 15 GM/60 ML BTL PO (13:04)
[2019-04-16] MEDS: HYDROmorphONE 0.5 MG/0.5 ML SYG IV ×2 (19:20→22:31)
[2019-04-16] MEDS: ALLOPURINOL 100 MG TAB PO (20:44)
[2019-04-17] MEDS: HYDROCODONE/APAP (10/325) TAB PO ×3 (00:29→18:08)
[2019-04-17] MEDS: ONDANSETRON 4 MG INJ IV ×2 (01:53→08:58)
[2019-04-17] MEDS: HYDROmorphONE 0.5 MG/0.5 ML SYG IV ×5 (01:54→14:36)
[2019-04-17] MEDS: ALBUMIN HUMAN 25% 50 ML IV ×2 (01:55→09:15)
[2019-04-17] MEDS: PANTOPRAZOLE 40 MG INJ IV (06:49)
[2019-04-17] MEDS: ALLOPURINOL 100 MG TAB PO ×2 (08:54→21:24)
[2019-04-17] MEDS: morphine (ER) 30 MG TAB PO ×2 (08:54→21:24)
[2019-04-17] MEDS: NYSTATIN 30 GM POWDER BTL TOP ×2 (09:00→21:00)
[2019-04-18] MEDS: HYDROmorphONE 0.5 MG/0.5 ML SYG IV (00:29)
[2019-04-18] MEDS: NYSTATIN 30 GM POWDER BTL TOP ×3 (01:16→20:06)
[2019-04-18] MEDS: HYDROCODONE/APAP (10/325) TAB PO ×3 (04:29→21:23)
[2019-04-18] MEDS: LEVOFLOXACIN 500 MG TAB PO (05:35)
[2019-04-18] MEDS: PANTOPRAZOLE 40 MG INJ IV (05:35)
[2019-04-18 07:06] LABS: ADD MAN DIFF? NO
[2019-04-18 07:15] LABS: ABNORMAL IP MESSAGE 1; BASOPHILS % 0.1 % (0.0-2.0); EOSINOPHILS % 0.1 % (0.0-7.0); HEMATOCRIT 28.5 % (37.0-47.0); HEMOGLOBIN 8.6 g/dl (12.0-16.0); LYMPHOCYTES # 0.3 10^3/ul (0.8-2.9); MEAN CORPUSCULAR HEMOGLOBIN 27.1 pg (29.0-33.0); MEAN CORPUSCULAR HGB CONC 30.2 g/dl (32.0-37.0); MEAN CORPUSCULAR VOLUME 89.9 fl (82.0-101.0); MONOCYTE # 0.9 10^3/ul (0.3-0.9); MONOCYTES % 6.8 % (0.0-11.0); NEUTROPHIL # 11.7 10^3/ul (1.6-7.5); NEUTROPHILS % 87.7 % (39.0-77.0); NUCLEATED RED BLOOD CELLS # 0.2 10^3/ul (0.0-0.0); NUCLEATED RED BLOOD CELLS% 1.6 /100WBC (0.0-0.0); PLATELET COUNT 311 10^3/UL (140-415); RED BLOOD COUNT 3.17 10^6/ul (4.20-5.40); RED CELL DISTRIBUTION WIDTH 20.3 % (11.5-14.5)
[2019-04-18 07:15] LABS: WHITE BLOOD COUNT 13.4 10^3/ul (4.8-10.8)
[2019-04-18 07:23] LABS: POSITIVE DIFF @See below
[2019-04-18 07:30] LABS: ALANINE AMINOTRANSFERASE 104 IU/L (13-69); ALBUMIN 3.1 g/dl (3.3-4.9); ALBUMIN/GLOBULIN RATIO 0.88; ANION GAP 15 (5-13); ASPARTATE AMINO TRANSFERASE 403 IU/L (15-46); BILIRUBIN,INDIRECT 1.2 mg/dl (0-1.1); BILIRUBIN,TOTAL 7.6 mg/dl (0.2-1.3); BLOOD UREA NITROGEN 46 mg/dl (7-20); CALCIUM 8.5 mg/dl (8.4-10.2); CARBON DIOXIDE 19 mmol/L (21-31); CHLORIDE 97 mmol/L (97-110); CREATININE 2.02 mg/dl (0.44-1.00); Estimated GFR 26 mL/min (>60); GLUCOSE 101 mg/dl (70-220); SODIUM 131 mmol/L (135-144); TOTAL PROTEIN 6.6 g/dl (6.1-8.1)
[2019-04-18 07:37] LABS: INR 1.53; PARTIAL THROMBOPLASTIN TIME 32.5 Sec (23.0-35.0); PROTIME 18.5 Sec (11.9-14.9); PT RATIO 1.4
[2019-04-18 07:38] LABS: MAGNESIUM 2.7 mg/dl (1.7-2.5)
[2019-04-18 07:40] LABS: ALKALINE PHOSPHATASE 1771 IU/L (42-121)
[2019-04-18 07:42] LABS: POTASSIUM 5.5 mmol/L (3.5-5.1)
[2019-04-18 08:42] LABS: ANISOCYTOSIS 2+ (0-0); BAND NEUTROPHILS % (M) 30 % (0-4); ERYTHROBLAST% (NRBC) (M) 2 % (0-0); GIANT THROMBO% (M) 3 % (0-0); HYPOCHROMASIA 2+ (0-0); LYMPHOCYTES #M 0.4 10^3/ul (0.8-2.9); LYMPHOCYTES % (M) 3 % (15-51); METAMYELOCYTES #M 0.1 10^3/ul (0.0-0.0); METAMYELOCYTES %M 1 % (0-0); MICROCYTOSIS 1+ (0-0); MONOCYTE #M 0.2 10^3/ul (0.3-0.9); MONOCYTES % (M) 2 % (0-11); PLATELET ESTIMATE NORMAL; PLATELET MORPHOLOGY COMMENT @See below; POIKILOCYTOSIS 1+ (0-0); POLYCHROMASIA 2+ (0-0); SEG NEUT #M 9.1 10^3/ul (1.6-7.5); SEGMENTED NEUTROPHILS (M) % 64 % (39-77); SMUDGE%M 2 % (0-0); TARGET CELLS 1+ (0-0)
[2019-04-18] MEDS: morphine (ER) 30 MG TAB PO ×2 (09:03→20:00)
[2019-04-18] MEDS: ALLOPURINOL 100 MG TAB PO ×2 (09:03→20:00)
[2019-04-19] MEDS: PANTOPRAZOLE 40 MG INJ IV (05:21)
[2019-04-19] MEDS: LEVOFLOXACIN 500 MG TAB PO (05:21)
[2019-04-19] MEDS: HYDROCODONE/APAP (10/325) TAB PO (05:21)
[2019-04-19] MEDS: HYDROmorphONE 0.5 MG/0.5 ML SYG IV ×3 (08:03→14:50)
[2019-04-19] MEDS: morphine (ER) 30 MG TAB PO (08:34)
[2019-04-19] MEDS: ALLOPURINOL 100 MG TAB PO (08:34)
[2019-04-19] MEDS: NYSTATIN 30 GM POWDER BTL TOP (08:34)
[2019-04-19] MEDS ORDERED: HEPARIN 1000 UNITS/ML 10 ML INJ (10:24)
[2019-04-19] MEDS ORDERED: LIDOCAINE 1% (MDV) 20 ML INJ (10:24)
[2019-04-19] MEDS ORDERED: MIDAZOLAM 1 MG/ML 2 ML INJ ×2 (10:53)
[2019-04-19] MEDS ORDERED: FENTAnyl 50 MCG/ML VIAL ×2 (10:53→11:09)
[2019-04-19 14:09] LABS: ABNORMAL IP MESSAGE 1; HEMATOCRIT 30.7 % (37.0-47.0); HEMOGLOBIN 9.2 g/dl (12.0-16.0); MEAN CORPUSCULAR HEMOGLOBIN 27.7 pg (29.0-33.0); MEAN CORPUSCULAR VOLUME 92.5 fl (82.0-101.0); MEAN PLATELET VOLUME 11.8 fl (7.4-10.4); NUCLEATED RED BLOOD CELLS% 2.8 /100WBC (0.0-0.0); PLATELET COUNT 312 10^3/UL (140-415); RED BLOOD COUNT 3.32 10^6/ul (4.20-5.40); RED CELL DISTRIBUTION WIDTH 20.6 % (11.5-14.5)
[2019-04-19 14:09] LABS: WHITE BLOOD COUNT 21.5 10^3/ul (4.8-10.8)
[2019-04-19 14:12] LABS: POSITIVE DIFF @See below
[2019-04-19 14:13] LABS: ADD MAN DIFF? YES
[2019-04-19 14:28] LABS: ALANINE AMINOTRANSFERASE 103 IU/L (13-69); ALBUMIN/GLOBULIN RATIO 0.78; ANION GAP 16 (5-13); ASPARTATE AMINO TRANSFERASE 340 IU/L (15-46); BILIRUBIN,INDIRECT 1.1 mg/dl (0-1.1); BILIRUBIN,TOTAL 8.9 mg/dl (0.2-1.3); BLOOD UREA NITROGEN 63 mg/dl (7-20); CALCIUM 8.1 mg/dl (8.4-10.2); CARBON DIOXIDE 15 mmol/L (21-31); CHLORIDE 100 mmol/L (97-110); GLUCOSE 114 mg/dl (70-220); SODIUM 131 mmol/L (135-144); TOTAL PROTEIN 6.8 g/dl (6.1-8.1)
[2019-04-19 14:34] LABS: Estimated GFR 22 mL/min (>60)
[2019-04-19 14:35] LABS: POTASSIUM 6.5 mmol/L (3.5-5.1)
[2019-04-19 14:37] LABS: ALKALINE PHOSPHATASE 1986 IU/L (42-121); CREATININE 2.34 mg/dl (0.44-1.00)
[2019-04-19 14:53] LABS: ANISOCYTOSIS 2+ (0-0); BAND NEUTROPHILS #M 8.1 10^3/ul (0.0-0.6); BAND NEUTROPHILS % (M) 38 % (0-4); BASOPHIL #M 0.2 10^3/ul (0.0-0.0); BASOPHILS % (M) 1 % (0-2); ERYTHROBLAST% (NRBC) (M) 3 % (0-0); LYMPHOCYTES #M 0.2 10^3/ul (0.8-2.9); LYMPHOCYTES % (M) 1 % (15-51); METAMYELOCYTES #M 0.2 10^3/ul (0.0-0.0); METAMYELOCYTES %M 1 % (0-0); MONOCYTE #M 0.4 10^3/ul (0.3-0.9); MONOCYTES % (M) 2 % (0-11); MYELOCYTES #M 0.4 10^3/ul (0.0-0.0); MYELOCYTES % (M) 2 % (0-0); PLATELET ESTIMATE NORMAL; POIKILOCYTOSIS 1+ (0-0); POLYCHROMASIA 1+ (0-0); PROMYELOCYTES #M 0.2 10^3/ul (0-0); PROMYELOCYTES % (M) 1 % (0-0); SEG NEUT #M 13.4 10^3/ul (1.6-7.5); SEGMENTED NEUTROPHILS (M) % 54 % (39-77); TARGET CELLS 1+ (0-0)
[2019-04-19] MEDS ORDERED: INSULIN LISPRO 100 UNIT/ML VIAL SC (15:00)
[2019-04-19] MEDS ORDERED: CALCIUM GLUCONATE 10% 1 GM in DEXTROSE 5% 100 ML IVPB (15:00)
[2019-04-19] MEDS ORDERED: ACCU-CHEK XX (15:00)
[2019-04-19] MEDS ORDERED: DEXTROSE 50% 50 ML SYRINGE IV (15:00)
[2019-04-19] MEDS: LORAZEPAM (2 MG/ML PO SYG) SL (15:51)
[2019-04-19] MEDS ORDERED: ARTIFICIAL TEARS 15 ML OPH BOTH EYES ×2 (16:00→19:00)
[2019-04-19] MEDS ORDERED: DIMETHICONE STICK TOP ×2 (16:00→19:00)
[2019-04-19] MEDS ORDERED: SODIUM BICARBONATE (IV ADD) 100 MEQ in SOD CHLORIDE 0.9% 900 ML IV (16:00)
[2019-04-19] MEDS: morphine (DRIP) 100 MG/100 ML 100 ML IV (16:23)
[2019-04-19] MEDS ORDERED: ATROPINE 1% 5 ML OPH SL (19:00)
[2019-04-19] MEDS ORDERED: morphine (DRIP) 100 MG/100 ML 100 ML IV ×3 (19:00→19:30)
[2019-04-19] MEDS ORDERED: ACETAMINOPHEN 650 MG SUPP PR (19:30)
[2019-04-19] MEDS: LORAZEPAM 2 MG INJ IV (20:33)
== END 2019-04-19 23:45 | disposition expired | DRG 375 ==
LOC: 2NE 04-19 18:14 → E/R 07:52 → PP2 14:49
PROC: 0W9G3ZZ Drainage of Peritoneal Cavity, Percutaneous Approach (ICD-10-PCS; principal; 2019-04-15)
PROC: 0WHG33Z Insertion of Infusion Device into Peritoneal Cavity, Percutaneous Approach (ICD-10-PCS; 2019-04-19)
DX: C18.9 Malignant neoplasm of colon, unspecified (principal); C78.7 Secondary malignant neoplasm of liver and intrahepatic bile duct; N17.9 Acute kidney failure, unspecified; E87.1 Hypo-osmolality and hyponatremia; N39.0 Urinary tract infection, site not specified; R18.0 Malignant ascites; G89.3 Neoplasm related pain (acute) (chronic); Z51.5 Encounter for palliative care; Z66 Do not resuscitate; D63.8 Anemia in other chronic diseases classified elsewhere; E87.5 Hyperkalemia; D72.829 Elevated white blood cell count, unspecified; B95.2 Enterococcus as the cause of diseases classified elsewhere; B96.20 Unspecified Escherichia coli [E. coli] as the cause of diseases classified elsewhere; F41.9 Anxiety disorder, unspecified; Z87.891 Personal history of nicotine dependence; Z88.0 Allergy status to penicillin; Z90.710 Acquired absence of both cervix and uterus
CPT/HCPCS: 36415; 49423; 71045; 74176; 76700; 76705; 76775; 76942; 80053; 80061; 81001; 81003; 82550; 82570; 83036; 83735; 84100; 84300; 84436; 84443; 84479; 84560; 85025; 85610; 85730; 87040-91; 87070; 87086; 87102; 87116; 89051; 89190; 96374; 99285-25